=== PATIENT | female | born 1995 | race African-American/Black ===

== ENCOUNTER 2023-03-11 07:57 | Emergency (ER) | payer SELFPAY ==
[~2023-03-11] VITALS: Ht 165.1 cm; Wt 64.0 kg
[2023-03-11 08:01] VITALS: BP 108/65; PULSE 68; RESP 18; TEMP 97.9; O2SAT 100
[2023-03-11 10:18] LABS: CHLORIDE 108 mEq/L (98-107)
[2023-03-11 10:24] LABS: BASOPHILS % 0.8 % (0.0-2.0); EOSINOPHILS % 4.8 % (0.0-5.0); HEMATOCRIT. 37.7 % (36.0-48.0); HEMOGLOBIN. 12.7 g/dL (12.0-16.0); LYMPHOCYTES % 14.4 % (20.0-50.0); MEAN CORPUSCULAR HEMOGLOBIN 30.1 pg (28.0-32.0); MEAN CORPUSCULAR VOLUME 89.7 fL (81.0-99.0); MEAN PLATELET VOLUME 7.8 fl (7.4-10.4); MONOCYTES % 11.7 % (2.0-8.0); NEUTROPHILS % 68.3 % (40.0-76.0); PLATELET 301 x1000/uL (130-400); RED CELL DISTRIBUTION WIDTH 12.4 % (11.6-14.6)
[2023-03-11 10:25] LABS: ETHANOL BLOOD < 10 mg/dL (-10)
[2023-03-11 10:59] LABS: HCG SCREEN NEGATIVE
[2023-03-11] MEDS ORDERED: ACETAMINOPHEN 325MG TABLET PO ONE (12:15)
== END 2023-03-11 12:16 | disposition home or self-care (01) ==
LOC: ER 07:57
DX: R42 Dizziness and giddiness (principal); R55 Syncope and collapse
CPT/HCPCS: 36415; 80048; 80307; 80320; 80329; 84703; 85025; 93005; 99285; G0480